=== PATIENT | female | born 1950 | race Caucasian/White ===

== ENCOUNTER 2021-08-20 11:11 | Inpatient (IN) ==
[2021-08-20] MEDS ORDERED: cefOXitin 2,000 MG in Water for inj. (sterile) 10 ML IVP ONE (11:59)
[2021-08-20] MEDS ORDERED: Ringers Solution, Lactated 1,000 ML IVC SCH (12:00)
[2021-08-20] MEDS ORDERED: *HR* Rocuronium Bromide 50 MG/5 ML VIAL ONE ×2 (12:25→15:30)
[2021-08-20] MEDS ORDERED: Ondansetron 4 MG/2 ML VIAL ONE (12:25)
[2021-08-20] MEDS ORDERED: Lidocaine -MPF 2% 5 ML VIAL ONE ×2 (12:25→14:49)
[2021-08-20] MEDS ORDERED: *HR* Propofol 200 MG/20 ML VIAL IVP ONE (12:25)
[2021-08-20] MEDS ORDERED: Lidocaine -MPF 4% 5 ML AMPUL ONE (12:25)
[2021-08-20] MEDS ORDERED: *HR* FentaNYL (PF) 100 MCG/2 ML VIAL ONE ×2 (12:25→14:44)
[2021-08-20] MEDS ORDERED: *HR* OxyCODONE Immed Rel 5 MG TABLET PO PRN (13:10)
[2021-08-20] MEDS ORDERED: *HR* HYDROmorphone PF 0.5 MG/0.5 ML SYRINGE IVP PRN (13:10)
[2021-08-20] MEDS ORDERED: Ondansetron 4 MG/2 ML VIAL IVP PRN ×2 (13:10→18:29)
[2021-08-20] MEDS ORDERED: Ketamine HCL *QUVA* 50mg (1mL) SYRINGE ONE (14:34)
[2021-08-20] MEDS ORDERED: *HR* Magnesium Sulfate 1 GM/2 ML VIAL ONE (14:49)
[2021-08-20] MEDS ORDERED: *HR* HYDROMORPHONE 2 MG/ML VIAL ONE (17:01)
[2021-08-20] MEDS ORDERED: Sugammadex Sodium 200 MG/2 ML VIAL IV ONE (17:03)
[2021-08-20] MEDS ORDERED: Naloxone 0.4 MG/ML INJ IVP PRN (18:29)
[2021-08-20] MEDS ORDERED: *HR* HYDROcodone/Acet 5/325 mg TABLET PO PRN (18:29)
[2021-08-20] MEDS ORDERED: Morphine Sulfate Oral CONC 10 MG/0.5 ML ORAL.SYG SL PRN (18:29)
[2021-08-20] MEDS: Ketorolac 30 MG/ML VIAL IVP SCH ×2 (18:50→23:57)
[2021-08-20] MEDS: 0.9 % Sodium Chloride 1,000 ML IVC SCH (21:08)
[2021-08-20] MEDS: cefOXitin 1,000 MG in 0.9 % Sodium Chloride Mini Bag 100 ML IVPB SCH (21:08)
[2021-08-21] MEDS: Ketorolac 30 MG/ML VIAL IVP SCH ×4 (05:13→23:48)
[2021-08-21] MEDS ORDERED: 0.9 % Sodium Chloride Mini Bag 100 ML ONE (05:17)
[2021-08-21] MEDS: cefOXitin 1,000 MG in 0.9 % Sodium Chloride Mini Bag 100 ML IVPB SCH ×2 (05:18→13:51)
[2021-08-21 05:55] LABS: Basophils % 0.1 %; Hematocrit 40.1 % (35.3-44.9); Hemoglobin 13.4 g/dL (11.5-15.4); Immature Granulocytes % 0.4 % (0-4); Lymphocytes # 0.6 K/mcL (0.6-4.6); Lymphocytes % 4.2 %; Mean Corpuscular HGB Conc 33.4 g/dL (31.6-35.5); Mean Corpuscular Hemoglobin 34.2 pg (28.0-33.3); Mean Corpuscular Volume 102.3 fL (83.0-100.0); Mean Platelet Volume 10.9 fL (9.4-12.4); Monocytes # 1.2 K/mcL (0.0-1.3); Monocytes % 8.1 %; Platelet Count 208 K/mcL (140-400); Red Blood Count 3.92 M/mcL (3.82-4.97); Red Cell Distribution Width 12.9 % (11.5-14.5); Segmented Neutrophils % 87.2 %; White Blood Count 14.9 K/mcL (4.3-11.1)
[2021-08-21 06:13] LABS: BUN/Creatinine Ratio 23 (6-26); Blood Urea Nitrogen 21 mg/dL (8-23); Calcium 8.2 mg/dL (8.6-10.3); Carbon Dioxide 21 mEq/L (23-29); Chloride 104 mEq/L (98-107); Glucose 140 mg/dL (70-105); Osmolality,Calculated 285 (280-300); Sodium 135 mEq/L (136-145); eGFR For African Americans > 60 (> 60); eGFR For Non-African Americans > 60 (> 60)
[2021-08-21] MEDS ORDERED: Orphenadrine 60 MG/2 ML VIAL IVP PRN (09:10)
[2021-08-21] MEDS ORDERED: Acetaminophen IV 1,000 MG/100 ML BAG IVPB ONE (09:30)
[2021-08-21] MEDS: 0.9 % Sodium Chloride 1,000 ML IVC SCH ×2 (09:40→22:27)
[2021-08-21] MEDS: *HR* Heparin 5,000 UNIT/ML VIAL SQ SCH (18:22)
[2021-08-22] MEDS: Ketorolac 30 MG/ML VIAL IVP SCH ×4 (05:16→23:59)
[2021-08-22] MEDS: *HR* Heparin 5,000 UNIT/ML VIAL SQ SCH ×2 (05:17→17:44)
[2021-08-22 08:11] LABS: Basophils % 0.3 %; Eosinophils % 0.2 %; Hematocrit 37.9 % (35.3-44.9); Hemoglobin 12.1 g/dL (11.5-15.4); Immature Granulocytes % 0.4 % (0-4); Lymphocytes # 1.8 K/mcL (0.6-4.6); Lymphocytes % 15.4 %; Mean Corpuscular HGB Conc 31.9 g/dL (31.6-35.5); Mean Corpuscular Hemoglobin 33.3 pg (28.0-33.3); Mean Corpuscular Volume 104.4 fL (83.0-100.0); Mean Platelet Volume 11.2 fL (9.4-12.4); Monocytes # 1.2 K/mcL (0.0-1.3); Monocytes % 10.5 %; Neutrophils # 8.7 K/mcL (1.6-8.9); Platelet Count 191 K/mcL (140-400); Red Blood Count 3.63 M/mcL (3.82-4.97); Red Cell Distribution Width 13.1 % (11.5-14.5); Segmented Neutrophils % 73.2 %; White Blood Count 11.9 K/mcL (4.3-11.1)
[2021-08-22] MEDS ORDERED: Metoclopramide 20 MG in 0.9 % Sodium Chloride 50 ML IVPB SCH (08:30)
[2021-08-22] MEDS ORDERED: *HR* LORazepam 2 MG/ML VIAL IVP ONE (13:48)
[2021-08-23] MEDS: Ketorolac 30 MG/ML VIAL IVP SCH (06:18)
[2021-08-23] MEDS: *HR* Heparin 5,000 UNIT/ML VIAL SQ SCH (06:18)
[2021-08-23 07:27] VITALS: BP 141/85; PULSE 89; TEMP 99; O2SAT 96
== END 2021-08-23 10:29 | disposition home or self-care (01) | DRG 331 ==
LOC: SAMDAY 11:11 → 3ANU 18:22
PROVIDERS: ADMIT Surgery; ATTEND Surgery